=== PATIENT | female | born 1995 | race Caucasian/White ===

== ENCOUNTER 2018-11-13 23:13 | Inpatient (IN) ==
[2018-11-14] MEDS ORDERED: Sodium Chloride 0.9% 100 ML IV ONE (00:41)
[2018-11-14] MEDS ORDERED: PENICILLIN G POTASSIUM 5,000,000 UNIT SDV IV ONE (00:41)
[2018-11-14] MEDS ORDERED: Clindamycin 900mg (Premix) 900 MG/50 ML BAG IV ONE ×2 (00:50→00:51)
--- NOTE | 2018-11-14 01:34 | OB.PROGRES ---
Date of Service: 11/14/18 Time of Service: 00:54 Interval History: 23 yo at 37 3/7 weeks gestation who presented this evening complaining of contractions that woke her from sleep. Has had nausea, vomiting today, including as she walked in to the ER. H/o still at 6 1/2 months-declined autopsy, Delivered a 6lb 14 oz male at 39 5/7 weeks gestation via 08/12/16. Denies any problems in either . Not on any medications. H/o asthma Multiple allergies including PCN, sulfa, tylenol. She was not lloyd consistently on arrival. When she was checked she was complete, vertex. I was notified Objective - Cervical Exam Cervical Exam: complete [place]: q2 minutes Heart Rate: baseline 120, moderate variability, accelerations, no decelerations Heart Rate Interpretation Category: Category I - Vital Signs Last Taken Vital Signs: Vital Signs - Last Taken Temperature 97.7 F 11/13/18 23:42 Pulse Rate 91 11/13/18 23:42 Respiratory Rate 16 11/13/18 23:42 Blood Pressure 109/73 11/13/18 23:42 Pulse Ox 99 11/13/18 23:42 Assessment and Plan - Patient Problems (1) 37 weeks gestation of Current Visit: Yes Status: Acute Code(s): Z3A.37 - 37 weeks gestation of Support Text: 23 yo G1101 at 37 3/7 weeks gestation, presented complete. Bag intact. Reports GBS positive and allergic to penicillin. I called [facility], they confirmed GBS positive and susceptible to clindamycin. Will start a dose of clinda 900 mg IV. Awaiting records. If comfortable will hold off on delivery.
[2018-11-14] MEDS ORDERED: Oxytocin 20 Units + LR 20 UNIT/1,000 ML BAG IV ONE (01:35)
[2018-11-14 01:39] LABS: URINE SAMPLE TYPE CLEAN CATCH URINE; URINE SPECIFIC GRAVITY - MAN 1.005
[2018-11-14] MEDS ORDERED: OXYTOCIN 10 UNIT/1 ML IM PRN (01:43)
[2018-11-14] MEDS ORDERED: Lidocaine 1% 10 MG/ML - 20 ML VIAL SUBCUT PRN (01:43)
[2018-11-14] MEDS ORDERED: FAMOTIDINE 20 MG/2 ML VIAL IVP PRN ×2 (01:43)
[2018-11-14] MEDS ORDERED: METHYLERGONOVINE MALEATE 0.2 MG/1 ML VIAL IM PRN (01:43)
[2018-11-14] MEDS ORDERED: LIDOCAINE HCL 2 % 10 ML JELLY URO-JECT TOPICAL PRN (01:43)
[2018-11-14] MEDS ORDERED: BUTORPHANOL TARTRATE 2 MG/1 ML VIAL IVP PRN (01:43)
[2018-11-14] MEDS ORDERED: TERBUTALINE SULFATE 1 MG/1 ML SDV SUBCUT PRN (01:43)
[2018-11-14] MEDS ORDERED: Metoclopramide Inj 10 MG/2 ML VIAL IV PRN (01:43)
[2018-11-14] MEDS ORDERED: Naloxone Inj 0.01 MG in Sodium Chloride 0.9% vial 1 ML IVP PRN (01:43)
[2018-11-14] MEDS ORDERED: diphenhydrAMINE 50 MG/1 ML VIAL IVP PRN (01:43)
[2018-11-14] MEDS ORDERED: LIDOCAINE W/ SODIUM BICARB 0.5 ML SYR SUBD PRN (01:43)
[2018-11-14] MEDS ORDERED: ePHEDrine Inj 50 MG/ML AMP IVP PRN (01:43)
[2018-11-14] MEDS ORDERED: NALOXONE 0.4 MG/1 ML VIAL IVP PRN (01:43)
[2018-11-14] MEDS ORDERED: Nalbuphine Inj 20 MG/ML Ampule IVP PRN (01:43)
[2018-11-14] MEDS ORDERED: Carboprost Inj 250 MCG/ML AMP IM PRN (01:43)
[2018-11-14] MEDS ORDERED: Phenylephrine Inj 50 MCG in Sodium Chloride 0.9% vial 0.5 ML IVP PRN (01:43)
[2018-11-14] MEDS ORDERED: MISOPROSTOL 200 MCG TABLET RECTAL PRN (01:43)
[2018-11-14] MEDS ORDERED: ONDANSETRON 4 MG/2 ML VIAL IVP PRN (01:43)
[2018-11-14] MEDS ORDERED: CALCIUM CARBONATE 500 MG (TUMS) CHEWABLE TABLET PO PRN (01:43)
[2018-11-14] MEDS ORDERED: fentaNYL Inj 100 MCG/2 ML VIAL IV PRN (01:43)
[2018-11-14] MEDS ORDERED: CITRIC ACID/SODIUM CITRATE 30 ML CUP PO PRN (01:43)
[2018-11-14] MEDS ORDERED: Lactated Ringers-OB Dept 1,000 ML PRIMARY IV SCH (01:45)
[2018-11-14] MEDS ORDERED: Oxytocin 20 Units + LR 20 UNIT/1,000 ML BAG IV SCH (01:45)
[2018-11-14 01:48] LABS: AMPHETAMINE SCREEN NEGATIVE (NEG); CANNABINOID SCREEN,URINE NEGATIVE (NEG); COCAINE SCREEN NEGATIVE (NEG); METHADONE URINE SCREEN NEGATIVE (NEG); METHAMPHETAMINES SCREEN,URINE NEGATIVE (NEG); OPIATE SCREEN,URINE NEGATIVE (NEG)
--- NOTE | 2018-11-14 05:39 | OB.PROGRES ---
Date of Service: 11/14/18 Time of Service: 05:31 Interval History: 23 yo at 37 3/7 weeks gestation presented for contractions, nausea/vomiting today. On initial exam the RN thought she was complete so clindamycin IV was started for GBS prophylaxis as she was positive. She also received 1L of LR. I checked her an hour after the antibiotics were given and she was 3-4/50/-2. She was quite comfortable. Her contractions had spaced out at that point to irregular intervals, up to 20 minutes between contractions. At this point she was allowed to rest, she slept at least an hour undisturbed. I just rechecked her 3 hours later and she is still 3-4/50/-2. She does note they have spaced out, but has some back discomfort still. We discussed continuing observation vs. discharge to home as I do not think she is in active labor. She discussed with her mom and maternal Aunt and feels comfortable with discharge to her Aunt's home. She plans to rest today, push fluids. Strict return precautions discussed - LOF, VB, decreased FM, increasing intensity/frequency of contractions. It sounds like she would prefer to deliver here as opposed to [place] where she had planned to deliver. If she does not deliver in the next 24 hours I asked her to call my office to schedule followup with me next week. Objective - Cervical Exam Cervical Exam: 3-4/50/-2 [place]: q4-20 minutes Heart Rate: baseline 125, moderate variability, accels, no decels. Heart Rate Interpretation Category: Category I - Vital Signs Last Taken Vital Signs: Vital Signs - Last Taken Temperature 98.8 F 11/14/18 03:40 Pulse Rate 73 11/14/18 00:58 Respiratory Rate 16 11/14/18 00:58 Blood Pressure 113/73 11/14/18 00:58 Pulse Ox 96 11/14/18 00:58 Assessment and Plan - Patient Problems (1) 37 weeks gestation of Current Visit: Yes Status: Acute Code(s): Z3A.37 - 37 weeks gestation of Support Text: 23 yo at 37 3/7 weeks gestation presented for labor check, contractions had awoken her from sleep. We prepared for labor when the Nurse initially thought she was complete. She received 1L LR and one dose of clindamycin 900mg. Then I checked her and found her to only be 3-4 cm/50/-2. Her contractions had spaced out by this point, she complained only of some low back pain. She rested, was observed for >3 hours without cervical change. We discussed further observation vs discharge to home, patient felt comfortable with discharge to home. Discharge to home with strict return precautions. F/u with me in clinic on Thursday if she doesn't return to [place] or deliver prior.
== END 2018-11-14 05:40 | disposition home or self-care (01) | DRG 832 ==
LOC: OBOP 23:13 → OBIP 11-14 00:37
PROVIDERS: ADMIT Student in an Organized Health Care Education/Training Program; ATTEND Student in an Organized Health Care Education/Training Program